=== PATIENT | male | born 1960 | race Caucasian/White ===

== ENCOUNTER 2021-08-18 08:50 | Emergency (ER) | payer MEDICARE ==
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
== END 2021-08-18 14:31 | disposition expired ==
LOC: EDBD → EC 08:50
DX: I46.9 Cardiac arrest, cause unspecified (principal); E11.9 Type 2 diabetes mellitus without complications; V47.5XXA Car driver injured in collision with fixed or stationary object in traffic accident, initial encounter; Y92.410 Unspecified street and highway as the place of occurrence of the external cause
CPT/HCPCS: 92950; 99285